=== PATIENT | male | born 1950 | race Caucasian/White ===

== ENCOUNTER 2022-10-13 21:12 | Observation (INO) | payer OTHER, MEDICARE ==
[~2022-10-13] VITALS: Ht 180.3 cm; Wt 136.1 kg
[2022-10-13 21:56] LABS: BASO% 0.1 % (0-3); HEMATOCRIT 44.7 % (39.0-50.0); HEMOGLOBIN 15.2 g/dl (14.0-18.0); IMMATURE GRANULOCYTES 0.2 % (0.0-5.0); MEAN CELL VOLUME 97.8 fL CALC (80.0-100.0); MEAN CORPUSCULAR HGB 33.3 pG CALC (26.0-32.0); MONO% 7.3 % (2-13); NEUT# 9.38 thou/uL (1.82-7.42); NEUT% 80.4 % (42-76); RED BLOOD COUNT 4.57 mill/uL (4.70-6.10); RED CELL DISTRI WIDTH 13.7 % (11.5-15.5)
[2022-10-13 22:09] LABS: ALBUMIN 4.6 g/dL (3.2-5.0); ALKALINE PHOSPHATASE 103 u/l (38-126); ANION GAP 14 (6-22 (CALC)); BILIRUBIN, TOTAL 0.9 mg/dL (0.0-1.4); BUN 18 mg/dL (8-23); BUN/CREATININE RATIO 18 (12-20 (CALC)); CARBON DIOXIDE 29 mmol/l (22-30); CHLORIDE 98 mmol/l (95-108); GFR FOR AFR.AMER. > 60 ML/MIN (>=60 (CALC)); GFR OTHER RACES > 60 ML/MIN (>=60 (CALC)); POTASSIUM 4.5 mmol/l (3.5-5.1); SGOT/AST 52 u/l (19-48); SODIUM 137 mmol/l (137-146); TOTAL PROTEIN 9.2 g/dL (6.3-8.2)
[2022-10-13 22:16] LABS: ACT PARTIAL THROMBO TIME 24.1 SECONDS (20.0-32.5); INTERNATIONAL NORMALIZED RATIO 1.1 RATIO (0.7-1.3); PROTHROMBIN TIME 11.1 SECONDS (9.0-12.5)
[2022-10-13] MEDS ORDERED: PROZAC20 MG PO (23:02)
[2022-10-13] MEDS ORDERED: PROTONIX40 M2 PO (23:03)
[2022-10-13] MEDS ORDERED: LISINOPRIL2.5 MG PO (23:03)
[2022-10-13] MEDS ORDERED: ZETIA10 MG PO (23:03)
[2022-10-13] MEDS ORDERED: METOPROL TAR25 MG PO (23:05)
[2022-10-13] MEDS ORDERED: ACETAMINOPHEN325 MG PO (23:05)
[2022-10-13] MEDS ORDERED: NORVASC5 M1 PO (23:06)
[2022-10-13] MEDS ORDERED: LINZESS290 MCG PO (23:06)
[2022-10-13] MEDS ORDERED: MIRALAX17 GM (23:07)
[2022-10-13] MEDS ORDERED: CVS STOOL SOFT100 MG (23:08)
[2022-10-13] MEDS ORDERED: GABAPENTIN100 MG PO (23:08)
[2022-10-13] MEDS ORDERED: HUMULIN 70/30 K1 INJ (23:09)
[2022-10-13] MEDS ORDERED: METFORMIN HCL500 M1 PO (23:10)
[2022-10-13] MEDS ORDERED: TRULICITY1.5 MG/0.5 (23:11)
[2022-10-14 01:46] LABS: URINE BILIRUBIN - DIPSTICK NEGATIVE (NEGATIVE); URINE BLOOD DIPSTICK SMALL (NEGATIVE); URINE COLOR YELLOW; URINE GLUCOSE - DIPSTICK NEGATIVE (NEGATIVE); URINE KETONE TRACE mg/dL (NEGATIVE); URINE PH 5.5 (4.5-8.0); URINE PROTEIN - DIPSTICK 100 mg/dL (NEG-TRACE); URINE SPECIFIC GRAVITY >=1.030; URINE UROBILINOGEN - DIPSTICK 0.2 E.U./dL (0.2)
[2022-10-14 01:47] LABS: URINE LEUK ESTERASE NEGATIVE (NEGATIVE); URINE NITRITE - DIPSTICK NEGATIVE (Negative)
[2022-10-14 01:48] LABS: URINE BACTERIA MODERATE hpf; URINE EPITHELIAL CELLS FEW EPI/hpf (0-FEW)
[2022-10-14 03:27] VITALS: BP 148/66
[2022-10-14 06:10] VITALS: BP 120/56
[2022-10-14 07:36] VITALS: BP 120/56
[2022-10-14 13:38] VITALS: BP 151/72
[2022-10-14 19:09] VITALS: BP 125/56
[2022-10-15 00:16] VITALS: BP 136/71
[2022-10-15 04:44] VITALS: BP 145/61
[2022-10-15 05:23] LABS: BASO% 0.3 % (0-3); EOS% 2.1 % (0-8); HEMATOCRIT 38.8 % (39.0-50.0); IMMATURE GRANULOCYTES 0.1 % (0.0-5.0); MEAN CELL VOLUME 98.7 fL CALC (80.0-100.0); MEAN CORPUSCULAR HGB 33.1 pG CALC (26.0-32.0); MEAN CORPUSCULAR HGB CONC 33.5 g/dL CAL (32.0-36.0); MONO% 14.8 % (2-13); NEUT# 5.28 thou/uL (1.82-7.42); NEUT% 66.7 % (42-76); RED BLOOD COUNT 3.93 mill/uL (4.70-6.10); RED CELL DISTRI WIDTH 14.1 % (11.5-15.5)
[2022-10-15 05:44] LABS: ALBUMIN 3.7 g/dL (3.2-5.0); ALKALINE PHOSPHATASE 78 u/l (38-126); ANION GAP 11 (6-22 (CALC)); BILIRUBIN, TOTAL 1.2 mg/dL (0.0-1.4); BUN 20 mg/dL (8-23); BUN/CREATININE RATIO 23 (12-20 (CALC)); CARBON DIOXIDE 25 mmol/l (22-30); CHLORIDE 104 mmol/l (95-108); CREATININE 0.9 mg/dL (0.7-1.3); GFR FOR AFR.AMER. > 60 ML/MIN (>=60 (CALC)); GFR OTHER RACES > 60 ML/MIN (>=60 (CALC)); MAGNESIUM 1.8 mg/dL (1.6-2.3); POTASSIUM 4.9 mmol/l (3.5-5.1); SGOT/AST 61 u/l (19-48); SODIUM 136 mmol/l (137-146); TOTAL PROTEIN 7.5 g/dL (6.3-8.2)
[2022-10-15 19:29] VITALS: BP 126/103
[2022-10-15 20:02] VITALS: BP 164/65
[2022-10-16 00:36] VITALS: BP 171/82
[2022-10-16 04:20] VITALS: BP 161/83
[2022-10-16 06:09] VITALS: BP 165/76
[2022-10-16 07:16] LABS: BASO% 0.2 % (0-3); EOS% 4.8 % (0-8); HEMATOCRIT 37.8 % (39.0-50.0); HEMOGLOBIN 12.6 g/dl (14.0-18.0); LYMPH% 24.7 % (15-41); MEAN CELL VOLUME 99.5 fL CALC (80.0-100.0); MEAN CORPUSCULAR HGB 33.2 pG CALC (26.0-32.0); MEAN CORPUSCULAR HGB CONC 33.3 g/dL CAL (32.0-36.0); MONO% 13.4 % (2-13); NEUT# 3.09 thou/uL (1.82-7.42); NEUT% 56.9 % (42-76); RED BLOOD COUNT 3.8 mill/uL (4.70-6.10); RED CELL DISTRI WIDTH 13.5 % (11.5-15.5)
[2022-10-16 07:41] LABS: ALBUMIN 3.6 g/dL (3.2-5.0); ALKALINE PHOSPHATASE 82 u/l (38-126); ANION GAP 9 (6-22 (CALC)); BILIRUBIN, TOTAL 1.1 mg/dL (0.0-1.4); BUN 14 mg/dL (8-23); BUN/CREATININE RATIO 19 (12-20 (CALC)); CARBON DIOXIDE 28 mmol/l (22-30); CHLORIDE 102 mmol/l (95-108); CREATININE 0.7 mg/dL (0.7-1.3); GFR FOR AFR.AMER. > 60 ML/MIN (>=60 (CALC)); GFR OTHER RACES > 60 ML/MIN (>=60 (CALC)); POTASSIUM 4.6 mmol/l (3.5-5.1); SGOT/AST 46 u/l (19-48); SODIUM 135 mmol/l (137-146); TOTAL PROTEIN 7.2 g/dL (6.3-8.2)
[2022-10-16 10:33] VITALS: BP 155/77
[2022-10-16] MEDS ORDERED: GABAPENTIN100 MG PO (10:51)
[2022-10-16] MEDS ORDERED: LEVAQUIN750 M1 PO (10:53)
== END 2022-10-16 12:10 | disposition home or self-care (01) | DRG 194 ==
LOC: ED 21:12 → ED-I 10-14 02:23 → ED 10-14 02:29 → MS2 10-14 02:30
PROVIDERS: Internal Medicine; Nurse Practitioner Family; ADMIT Internal Medicine; ATTEND Internal Medicine
DX: J18.9 Pneumonia, unspecified organism (principal); E87.20 Acidosis, unspecified; R59.0 Localized enlarged lymph nodes; I10 Essential (primary) hypertension; E11.9 Type 2 diabetes mellitus without complications; G54.6 Phantom limb syndrome with pain; Z89.611 Acquired absence of right leg above knee; Z87.820 Personal history of traumatic brain injury; Z79.84 Long term (current) use of oral hypoglycemic drugs; Z79.4 Long term (current) use of insulin; Z20.822 Contact with and (suspected) exposure to COVID-19
CPT/HCPCS: G0378; Q9967

== ENCOUNTER 2022-11-19 20:24 | Emergency (ER) | payer OTHER, MEDICARE ==
[~2022-11-19 20:24] MED LIST: ACETAMINOPHEN325 MG PO; CVS STOOL SOFT100 MG; GABAPENTIN100 MG PO; HUMULIN 70/30 K1 INJ; LEVAQUIN750 M1 PO; LINZESS290 MCG PO; LISINOPRIL2.5 MG PO; METFORMIN HCL500 M1 PO; METOPROL TAR25 MG PO; MIRALAX17 GM; NORVASC5 M1 PO; PROTONIX40 M2 PO; PROZAC20 MG PO; TRULICITY1.5 MG/0.5; ZETIA10 MG PO
== END 2022-11-19 22:21 | disposition left against medical advice (07) | DRG 951 ==
LOC: ED 20:24 → LWOBS 22:21
DX: Z53.21 Procedure and treatment not carried out due to patient leaving prior to being seen by health care provider (principal)

== ENCOUNTER 2022-11-20 16:43 | Inpatient (IN) | payer MEDICARE ==
[~2022-11-20] VITALS: Ht 180.3 cm; Wt 129.0 kg
--- NOTE | 2022-11-20 17:05 | NUR ---
PATIENT ARRIVED WITH SPOUSE TO UNIT DIRECT ADMIT. UPON ASSESSMENT PATIENT TEMP WAS 102.9 TYLENOL WAS ORDERED WHILE AWAITING VERIFICATION APPLIED COLD BAGS AROUND HIS BODY TO HELP BRING TEMP DOWN. KEEP PATIENT AND SPOUSE INFORM OF PLAN. LAST TEMP WAS 102.1 WILL CONTINUE TO MONITOR
[2022-11-20 17:16] VITALS: BP 179/73
[2022-11-20 18:15] VITALS: BP 158/72
[2022-11-20 19:32] VITALS: BP 152/68
--- NOTE | 2022-11-20 19:45 | NUR ---
IV SITE SITE INSERTED ON RT HAND G 22 PATEN FLUSHES WELL.
--- NOTE | 2022-11-20 20:00 | NUR ---
RECEIVED REPORT FROM NURSE DEBO, PATIENT ON ISOLATION COVID, CXR DONE, EKG DONE, PATIENT ALERT ORIENTED IS HARD OF HEARING, LUNG SOUNDS DIMINISHED, HOOKED ON TELEMETRY SR 97, FEBRILE, TYLENOL WAS GIVEN EARLIER, WILL REEVALUATE, ACTIVE BOWEL SOUNDS CALL LIGHT IN REACH.
[2022-11-20 20:09] LABS: BASO% 0.2 % (0-3); EOS% 0.2 % (0-8); HEMATOCRIT 41.9 % (39.0-50.0); IMMATURE GRANULOCYTES 0.1 % (0.0-5.0); LYMPH% 12.7 % (15-41); MEAN CELL VOLUME 96.5 fL CALC (80.0-100.0); MEAN CORPUSCULAR HGB 32.3 pG CALC (26.0-32.0); MEAN CORPUSCULAR HGB CONC 33.4 g/dL CAL (32.0-36.0); MONO% 12.3 % (2-13); NEUT# 7.27 thou/uL (1.82-7.42); NEUT% 74.5 % (42-76); RED BLOOD COUNT 4.34 mill/uL (4.70-6.10); RED CELL DISTRI WIDTH 13.6 % (11.5-15.5)
[2022-11-20 20:20] LABS: ALBUMIN 4.3 g/dL (3.2-5.0); ALKALINE PHOSPHATASE 85 u/l (38-126); ANION GAP 16 (6-22 (CALC)); BILIRUBIN, TOTAL 0.9 mg/dL (0.2-1.3); BUN 18 mg/dL (8-23); BUN/CREATININE RATIO 22 (12-20 (CALC)); CARBON DIOXIDE 24 mmol/l (22-30); CHLORIDE 98 mmol/l (95-108); CREATININE 0.9 mg/dL (0.7-1.3); GFR FOR AFR.AMER. > 60 ML/MIN (>=60 (CALC)); GFR OTHER RACES > 60 ML/MIN (>=60 (CALC)); POTASSIUM 4.3 mmol/l (3.5-5.1); SGOT/AST 55 u/l (19-48); SODIUM 134 mmol/l (137-146); TOTAL PROTEIN 8.4 g/dL (6.3-8.2)
[2022-11-20 21:26] VITALS: BP 138/63
--- NOTE | 2022-11-20 21:50 | NUR ---
NEW IV REINSERTED ON LEFT FOREARM G22, PATENT FLUSHES WELL.
[2022-11-20 22:37] LABS: URINE BILIRUBIN - DIPSTICK NEGATIVE (NEGATIVE); URINE BLOOD DIPSTICK NEGATIVE (NEGATIVE); URINE COLOR YELLOW; URINE GLUCOSE - DIPSTICK NEGATIVE (NEGATIVE); URINE KETONE NEGATIVE (NEGATIVE); URINE LEUK ESTERASE NEGATIVE (NEGATIVE); URINE PH 5.5 (4.5-8.0); URINE PROTEIN - DIPSTICK 100 mg/dL (NEG-TRACE); URINE SPECIFIC GRAVITY >=1.030
[2022-11-20 22:52] LABS: URINE NITRITE - DIPSTICK NEGATIVE (Negative)
[2022-11-20 22:58] LABS: URINE RBC 0-2 RBC/hpf (0-5); URINE WBC 0-2 WBC/hpf (0-5)
[2022-11-21] VITALS (7 sets, daily range): BP systolic 134–152; BP diastolic 71–96
--- NOTE | 2022-11-21 | NUR ---
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
--- NOTE | 2022-11-21 04:26 | NUR ---
PARINET RESTING IN BED REMAINS ON O2 @ 2LPM VIA NC, NOT IN DISTRESS, CALL LIGHT IN REACH.
[2022-11-21 05:30] LABS: BASO% 0.1 % (0-3); HEMATOCRIT 42.7 % (39.0-50.0); HEMOGLOBIN 14.3 g/dl (14.0-18.0); IMMATURE GRANULOCYTES 0.9 % (0.0-5.0); LYMPH% 13.6 % (15-41); MEAN CELL VOLUME 96.2 fL CALC (80.0-100.0); MEAN CORPUSCULAR HGB 32.2 pG CALC (26.0-32.0); MEAN CORPUSCULAR HGB CONC 33.5 g/dL CAL (32.0-36.0); NEUT# 6.15 thou/uL (1.82-7.42); NEUT% 80.4 % (42-76); RED BLOOD COUNT 4.44 mill/uL (4.70-6.10); RED CELL DISTRI WIDTH 13.3 % (11.5-15.5)
[2022-11-21 05:52] LABS: ALBUMIN 4.1 g/dL (3.2-5.0); ALKALINE PHOSPHATASE 89 u/l (38-126); ANION GAP 16 (6-22 (CALC)); BILIRUBIN, TOTAL 0.9 mg/dL (0.2-1.3); BUN 22 mg/dL (8-23); BUN/CREATININE RATIO 25 (12-20 (CALC)); C-REACTIVE PROTEIN 5.8 mg/dL (0-0.9); CARBON DIOXIDE 25 mmol/l (22-30); CHLORIDE 98 mmol/l (95-108); CREATININE 0.9 mg/dL (0.7-1.3); GFR FOR AFR.AMER. > 60 ML/MIN (>=60 (CALC)); GFR OTHER RACES > 60 ML/MIN (>=60 (CALC)); POTASSIUM 4.6 mmol/l (3.5-5.1); SGOT/AST 47 u/l (19-48); SODIUM 134 mmol/l (137-146); TOTAL PROTEIN 7.9 g/dL (6.3-8.2)
[2022-11-21] MEDS ORDERED: GABAPENTIN300 M2 PO (14:19)
--- NOTE | 2022-11-21 19:40 | NUR ---
PATIENT RESTING IN BED WITH HOB ELEVATED. ALERT AND ABLE TO MAKE NEEDS KNOWN. ASSESSMENT COMPLETE. NO COMPLAINTS OF PAIN. NO DISTRESS NOTED. DOES REMAIN ON ISOLATION FOR COVID. PATIENT WAS REPOSITIONED IN BED. 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 BED REMAINS IN LOW POSITION. CALL SANDERS IN REACH.
--- NOTE | 2022-11-21 23:50 | NUR ---
PATIENT TURNED IN BED, POSITION CHANGE PER PATIENT REQUEST. IV ABT HUNG PER ORDERS. NO COMPLAINTS VOICED AT THIS TIME. BED REMAINS IN LOW POSITION. CALL SANDERS IN REACH.
[2022-11-22 04:19] VITALS: BP 140/69
--- NOTE | 2022-11-22 04:20 | NUR ---
PATIENT REMAINS RESTING IN BED WITH HOME CPAP ON. NO COMPLAINTS VOICED. NO DISTRESS NOTED. BED REMAINS IN LOW POSITION. CALL SANDERS IN REACH.
[2022-11-22 04:55] LABS: BASO% 0.1 % (0-3); HEMOGLOBIN 13.5 g/dl (14.0-18.0); IMMATURE GRANULOCYTES 0.2 % (0.0-5.0); MEAN CELL VOLUME 97.3 fL CALC (80.0-100.0); MEAN CORPUSCULAR HGB 32.8 pG CALC (26.0-32.0); MEAN CORPUSCULAR HGB CONC 33.8 g/dL CAL (32.0-36.0); MONO% 8.2 % (2-13); NEUT# 10.06 thou/uL (1.82-7.42); NEUT% 80.5 % (42-76); RED BLOOD COUNT 4.11 mill/uL (4.70-6.10); RED CELL DISTRI WIDTH 13.2 % (11.5-15.5)
[2022-11-22 05:12] LABS: ALBUMIN 3.8 g/dL (3.2-5.0); ALKALINE PHOSPHATASE 75 u/l (38-126); ANION GAP 13 (6-22 (CALC)); BUN 25 mg/dL (8-23); BUN/CREATININE RATIO 26 (12-20 (CALC)); CARBON DIOXIDE 28 mmol/l (22-30); CHLORIDE 100 mmol/l (95-108); GFR FOR AFR.AMER. > 60 ML/MIN (>=60 (CALC)); GFR OTHER RACES > 60 ML/MIN (>=60 (CALC)); MAGNESIUM 2.1 mg/dL (1.6-2.3); POTASSIUM 4.7 mmol/l (3.5-5.1); SGOT/AST 38 u/l (19-48); SODIUM 137 mmol/l (137-146); TOTAL PROTEIN 7.4 g/dL (6.3-8.2)
[2022-11-22 05:26] LABS: BILIRUBIN, TOTAL 0.5 mg/dL (0.2-1.3)
[2022-11-22 06:35] VITALS: BP 133/68
[2022-11-22 10:25] VITALS: BP 133/71
[2022-11-22] MEDS ORDERED: VENTOLIN HFA108 MCG IN (11:53)
--- NOTE | 2022-11-22 12:29 | NUR ---
PATIENT LEFT UNIT WITH SPOUSE DISCHARGE INSTRUCTIONS GIVEN. PATIENT STATED UNDERSTANDING WITH PRESENT. PIV AND HEART MONITOR REMOVED. PATIENT ON RA WITH OUT SOB.
== END 2022-11-22 12:28 | disposition home or self-care (01) | DRG 179 ==
LOC: MS2 16:43
PROVIDERS: Nurse Practitioner Family; ADMIT Internal Medicine; ATTEND Internal Medicine
DX: U07.1 COVID-19 (principal); R50.9 Fever, unspecified; R05.9 Cough, unspecified; R09.02 Hypoxemia; I10 Essential (primary) hypertension; E11.9 Type 2 diabetes mellitus without complications; G54.6 Phantom limb syndrome with pain; R59.0 Localized enlarged lymph nodes; Z87.820 Personal history of traumatic brain injury; Z89.611 Acquired absence of right leg above knee; Z79.84 Long term (current) use of oral hypoglycemic drugs; Z79.4 Long term (current) use of insulin
CPT/HCPCS: Q9967